=== PATIENT | male | born 1970 | race Hispanic/Latino ===

== ENCOUNTER 2018-02-19 20:31 | Observation (INO) | payer OTHER ==
[2018-02-19 21:05] VITALS: BP 125/76
[2018-02-19 21:17] VITALS: BP 125/76
[2018-02-19] MEDS ORDERED: PANTOPRAZOLE SOD 40 MG TABEC PO ONE (22:15)
[2018-02-19] MEDS ORDERED: SODIUM CHLORIDE FLUSH 10 ML SYR INJ PRN (22:15)
[2018-02-19] MEDS ORDERED: MORPHINE SULFATE 2 MG/ML SYR IV PRN (22:15)
[2018-02-19] MEDS ORDERED: SYNTHROID100 MCG PO (22:56)
[2018-02-20] VITALS: BP 122/67
[2018-02-20 02:32] LABS: CREATINE KINASE 390 IU/L (30-200)
[2018-02-20 04:00] VITALS: BP 130/85
[2018-02-20 04:41] LABS: CREATINE KINASE 477 IU/L (30-200)
[2018-02-20 06:08] LABS: ALANINE AMINOTRANSFERASE 26 IU/L (0-55); ALBUMIN 3.5 g/dL (3.5-5.0); ALBUMIN/GLOBULIN RATIO 1.4 (0.8-2.0); ALKALINE PHOSPHATASE 53 IU/L (40-150); ANION GAP 15.2 mmol/L (8-16); BLOOD UREA NITROGEN 15 mg/dL (7-26); BUN/CREATININE RATIO 15 (6-25); CALCIUM 8.8 mg/dL (8.4-10.2); CARBON DIOXIDE 20 mmol/L (22-29); CHLORIDE 111 mmol/L (98-107); CHOL/HDL RATIO 3.2 (3.9-4.7); CHOLESTEROL 136 MD/DL (0-199); EST GLOMERULAR FILTRATION RATE > 60 ML/MIN (60-); GLUCOSE 95 mg/dL (74-118); HDL CHOLESTEROL 43 MG/DL (40-60); LDL CHOLESTEROL 76 MG/DL (60-130); POTASSIUM 4.2 mmol/L (3.5-5.1); SODIUM 142 mmol/L (136-145); TRIGLYCERIDES 86 MG/DL (0-149)
[2018-02-20] MEDS ORDERED: SODIUM CHLORIDE 0.9% 1000ML 1,000 ML IV SCH (06:15)
[2018-02-20 07:09] LABS: BASOPHILS % 0.6 % (0.0-1.0); EOSINOPHILS # (AUTO) 0.2 (0.0-0.4); EOSINOPHILS % 3.4 % (0.0-6.0); HEMATOCRIT 39.1 % (38.2-49.6); HEMOGLOBIN 13.3 g/dL (14.0-18.0); LYMPHOCYTES % 41.6 % (18.0-39.1); MEAN CORPUSCULAR HEMOGLOBIN 30.6 pg (28-32); MEAN CORPUSCULAR VOLUME 90.1 fL (81-99); MONOCYTES # (AUTO) 0.6 (0.2-0.8); MONOCYTES % 8.8 % (4.4-11.3); NEUTROPHILS # (AUTO) 3.2 (2.1-6.9); NEUTROPHILS % 45.5 % (38.7-80.0); PLATELET COUNT 254 x10e3/uL (140-360); RED BLOOD COUNT 4.34 x10e6/uL (4.3-5.7); RED CELL DISTRIBUTION WIDTH 13.3 % (11.7-14.4)
[2018-02-20] MEDS ORDERED: PANTOPRAZOLE SOD 40 MG TABEC PO SCH (07:30)
[2018-02-20 07:56] VITALS: BP 122/76
[2018-02-20 08:11] VITALS: BP 122/76
[2018-02-20 08:35] LABS: CREATINE KINASE 432 IU/L (30-200)
[2018-02-20] MEDS ORDERED: ASPIRIN 325 MG TAB PO SCH (09:00)
[2018-02-20] MEDS ORDERED: ASPIRIN 81 MG CHEW TAB ONE (09:12)
[2018-02-20] MEDS ORDERED: LEVOTHYROXINE SODIUM 100 MCG TAB PO SCH (11:30)
[2018-02-20 12:21] LABS: CREATINE KINASE 385 IU/L (30-200)
--- NOTE | 2018-02-20 12:59 | Discharge Summary ---
PRIMARY CARE DOCTOR: Dr. Lizbet Bailey with [facility]. FINAL DIAGNOSIS: Palpitation. SECONDARY DIAGNOSES 1. Mild acute rhabdomyolysis. 2. Hypothyroidism. 3. Mild metabolic acidosis. CONSULTANTS: None. PROCEDURES/STUDIES PERFORMED: None. HISTORY: Per [facility] HOSPITAL COURSE: Patient's troponins were negative x3; therefore, no myocardial infarction. Patient has been sinus while here. His TSH is normal; therefore, etiology is unclear since his heart rate was only as high as 138 per his Fitbit watch, most likely to be atrial fibrillation. I had a long discussion with him. We may consider outpatient cardiology evaluation, especially if his palpitations recurs. I have updated his PCP as well. His CPK came down with hydration. Patient was seen and examined today. CONDITION ON DISCHARGE: Stable. DISCHARGE MEDICATIONS: Please see medication reconciliation form. CLARKE ASHBY M.D. Job#: [id number] [place] cc:DR. LIZBET BAILEY
[2018-02-21] MEDS ORDERED: ASPIRIN 81 MG ENTERIC COATED PO SCH (09:00)
== END 2018-02-20 13:29 | disposition home or self-care (01) ==
LOC: IMCU 20:48
PROVIDERS: ADMIT Internal Medicine; ATTEND Internal Medicine
DX: R00.2 Palpitations (principal); M62.82 Rhabdomyolysis; E03.9 Hypothyroidism, unspecified; E87.2 Acidosis
CPT/HCPCS: 36415; 80053; 80061; 82550; 82553; 83036; 84443; 84484; 85025; G0378 ×2; J7030; S0164 ×2